=== PATIENT | female | born 1980 | race Caucasian/White ===

== ENCOUNTER 2017-05-29 15:05 | Emergency (ER) | payer BC, OTHER ==
[~2017-05-29] VITALS: Ht 160 cm; Wt 86.4 kg
[~2017-05-29 15:05] MED LIST: CLIN300C11 PO
[2017-05-29 16:58] VITALS: BP 137/84
== END 2017-05-29 19:54 | disposition home or self-care (01) ==
LOC: EEVIPCON 15:09 → ER 15:09
DX: T74.21XA Adult sexual abuse, confirmed, initial encounter (principal); Y07.59 Other non-family member, perpetrator of maltreatment and neglect
CPT/HCPCS: 99281; 99284

== ENCOUNTER 2018-09-26 11:45 | Emergency (ER) | payer MEDICAID, OTHER ==
[~2018-09-26] VITALS: Ht 160 cm; Wt 84.1 kg
[2018-09-26] MEDS ORDERED: charcoal, activated 50 GM/240 ML bottle PO ONE (12:10)
--- NOTE | 2018-09-26 12:10 | NUR ---
POISON CONTROL CONTACTED AND REPORTED PT WITH POSSIBLE INGESTION OF UP TO 60 TABS OF BENADRYL 25MG TABS. RECOMMENDATIONS INCLUDE: IF PT ALERT GIVE PT ORAL ACTIVATED CHARCOAL X 1 ROUTINE LAB DRAWS WITH TOXICOLOGY SEIZURE PRECAUTIONS EKG, MONITOR FOR WIDENED QRS IF >100 GIVE SODIUM BICARB
--- NOTE | 2018-09-26 12:15 | NUR ---
RECEIVED VO FOR ACTIVATED CHARCOAL FROM DR. PINTO.
--- NOTE | 2018-09-26 12:50 | NUR ---
PT INGESTED 240ML OF CHARCOAL PO WELL. NO NG NEEDED.
--- NOTE | 2018-09-26 12:51 | NUR ---
Bryant macdonald in [facility] - 09/26/18 at 1252 by HUMBERTO SHY CALLING [facility]
--- NOTE | 2018-09-26 12:52 | NUR ---
SHY CALLED FOR TELEPSYCH CONSULT
[2018-09-26 13:10] LABS: ALANINE AMINOTRANSFERASE 22 U/L (12-78); ALBUMIN 3.7 G/DL (3.4-5.0); ALKALINE PHOSPHATASE 93 IU/L (46-116); ANION GAP 8 (8-16); ASPARTATE AMINO TRANSFERASE 11 U/L (10-37); BILIRUBIN,TOTAL 0.4 MG/DL (0.1-1.0); BLOOD UREA NITROGEN 10 MG/DL (7-18); BUN/CREATININE RATIO 13.2 (6.6-38.0); CALCIUM 9.2 MG/DL (8.5-10.1); CHLORIDE 106 MMOL/L (99-107); CREATININE 0.76 MG/DL (0.40-0.90); GLUCOSE 80 MG/DL (70-104); POTASSIUM 3.1 MMOL/L (3.5-5.1); SODIUM 142 MMOL/L (135-145); TOTAL PROTEIN 7.4 G/DL (6.4-8.2); eGFR 85 ML/MIN
[2018-09-26 13:14] LABS: URINE AMPHETAMINE SCREEN NEGATIVE (Neg); URINE BARBITUATE SCREEN NEGATIVE (Neg); URINE BENZODIAZEPINES SCREEN POSITIVE (Neg); URINE CANNABINOID SCREEN POSITIVE (Neg); URINE COCAINE SCREEN NEGATIVE (Neg); URINE METHADONE SCREEN NEGATIVE (Neg); URINE OPIATE SCREEN NEGATIVE (Neg); URINE PHENCYCLIDINE SCREEN NEGATIVE (Neg)
[2018-09-26 13:19] LABS: ACETAMINOPHEN < 2.0 UG/ML (10-30); ETHANOL < 0.010 GM/DL (0.0-0.010)
[2018-09-26 13:21] LABS: BASOPHILS % (AUTO) 0.3 % (0-1); EOSINOPHILS # (AUTO) 0.1 X10'3 (0-0.9); EOSINOPHILS % (AUTO) 0.9 % (0-6); HEMATOCRIT 39.9 % (35.0-45.0); HEMOGLOBIN 12.9 g/dl (12.0-16.0); LYMPHOCYTES # (AUTO) 2.2 X10'3 (1.1-4.8); MEAN CORPUSCULAR HEMOGLOBIN 28.2 PG (27.0-31.0); MEAN CORPUSCULAR HGB CONC 32.4 g/dL (33.0-36.5); MONOCYTES # (AUTO) 0.8 X10'3 (0-0.9); MONOCYTES % (AUTO) 6.7 % (2-12); NEUTROPHILS # (AUTO) 9.1 X10'3 (1.8-7.7); NEUTROPHILS % (AUTO) 74.1 % (42-75); PLATELET COUNT 374 X10'3 (140-440); RED BLOOD COUNT 4.58 X10'6 (4.20-5.60); RED CELL DISTRIBUTION WIDTH 16.2 % (11.5-14.5); WHITE BLOOD COUNT 12.2 X10'3 (4.5-11.0)
[2018-09-26 13:24] LABS: URINE HCG NEGATIVE (NEG)
[2018-09-26] MEDS ORDERED: normal saline 1000ML IV soln IVB ONE (13:30)
[2018-09-26] MEDS ORDERED: ondansetron/PF 4mg/2ml inj IV ONE (13:30)
--- NOTE | 2018-09-26 13:35 | NUR ---
PT PLACED ON [address]
[2018-09-26] MEDS ORDERED: ALPRAZolam 0.5mg tablet PO PRN (16:05)
--- NOTE | 2018-09-26 19:30 | NUR ---
Rcd pt from ED awake and alert per w/c.Needs attended.Still nauseous.
[2018-09-26] MEDS ORDERED: ESCI20TA38 PO (19:32)
[2018-09-26] MEDS ORDERED: ALPR1TAB7 PO (19:32)
[2018-09-26] MEDS ORDERED: ZOLP10TA5 PO (19:32)
--- NOTE | 2018-09-26 20:35 | NUR ---
up to the bathroom with assist.pt drowsy and a little bit unsteady.
[2018-09-26] MEDS ORDERED: ALPRAZolam 0.5mg tablet PO SCH (21:00)
[2018-09-26] MEDS ORDERED: citalopram 20mg tablet PO SCH (21:00)
[2018-09-26] MEDS ORDERED: zolpidem 5mg tablet PO SCH (21:00)
--- NOTE | 2018-09-26 21:35 | NUR ---
pt up to the bathroom with fww
--- NOTE | 2018-09-26 22:34 | NUR ---
up to the bathroom with fww.
--- NOTE | 2018-09-26 23:45 | NUR ---
asleep in bed breathing even and unlaboured.
--- NOTE | 2018-09-27 00:50 | NUR ---
pt sleeping breathing even and unlaboured.
--- NOTE | 2018-09-27 01:34 | NUR ---
up to the bathroom with fww.
--- NOTE | 2018-09-27 02:50 | NUR ---
sleeping on her left side
--- NOTE | 2018-09-27 03:50 | NUR ---
had diarrhea from activated charcoal.linen changed.
--- NOTE | 2018-09-27 05:00 | NUR ---
pt asleep in bed,breathing even and unlaboured.
[2018-09-27 06:11] VITALS: BP 125/81
--- NOTE | 2018-09-27 07:02 | NUR ---
Received report from Jhoana RN
--- NOTE | 2018-09-27 08:12 | NUR ---
MOTHER IS HERE TO VISIT PATIENT
--- NOTE | 2018-09-27 08:54 | NUR ---
Patient up to the bathroom
--- NOTE | 2018-09-27 11:21 | NUR ---
IV REMOVED AND PATIENT UP TO THE BATHROOM TO GIVE A SAMPLE OF URINE.
[2018-09-27 11:38] LABS: CLARITY,URINE CLEAR (Clear); COLOR,URINE YELLOW (Yellow); GLUCOSE, URINE NEGATIVE (Neg); KETONES,URINE NEGATIVE (Neg); LEUKOCYTE ESTERASE ,URINE NEGATIVE (Neg); NITRITES, URINE NEGATIVE (Neg); OCCULT BLOOD,URINE MODERATE (Neg); PROTEIN,URINE NEGATIVE (Neg); UROBILINOGEN,URINE 0.2 E.U/dL (0.2-1.0)
[2018-09-27] MEDS ORDERED: potassium Cl 20 mEq SR tablet PO PRN ×2 (11:40)
[2018-09-27] MEDS ORDERED: magnesium Cl slow-release 64mg tablet PO PRN (11:40)
[2018-09-27] MEDS ORDERED: potassium Cl 40MEQ/NS 500ml 500 ML IV PRN ×2 (11:40)
[2018-09-27 11:42] LABS: UA COLLECTION TYPE NON-SPECIFIED
[2018-09-27 11:52] LABS: BACTERIA,URINE FEW /HPF (Neg); SQUAMOUS EPITHELIAL CELL,UR MANY /LPF (FEW); WBC,URINE 0-4 /HPF (0-4)
--- NOTE | 2018-09-27 13:01 | NUR ---
[facility] CALLED REGARDING PT. THEY WANTED TO MAKE SURE SHE RECIEVED K+ REPLACEMENT
--- NOTE | 2018-09-27 13:52 | NUR ---
PATIENT FAMILY MEMBERS LEFT. [facility] WILL BE PICKING UP PATIENT. PER [facility].
== END 2018-09-27 14:50 ==
LOC: ER 11:46
DX: T45.0X2A Poisoning by antiallergic and antiemetic drugs, intentional self-harm, initial encounter (principal); F32.9 Major depressive disorder, single episode, unspecified; R45.851 Suicidal ideations; F41.9 Anxiety disorder, unspecified; Z79.899 Other long term (current) drug therapy; Y92.89 Other specified places as the place of occurrence of the external cause
CPT/HCPCS: 36415; 80053; 80305; 80320; 80329; 81001; 81025; 84443; 85025; 93005; 96374; 99291; J2405; J7030

== ENCOUNTER 2019-03-13 11:14 | Emergency (ER) | payer MEDICAID ==
[~2019-03-13] VITALS: Ht 170.2 cm; Wt 72.0 kg
[~2019-03-13 11:14] MED LIST changes: +ALPR1TAB7 PO; -CLIN300C11 PO; +ESCI20TA38 PO; +ZOLP10TA5 PO
[2019-03-13 11:29] VITALS: BP 120/83
--- NOTE | 2019-03-13 12:00 | NUR ---
pt came in with mother. pt placed in room 20. pt is very anxious
[2019-03-13] MEDS ORDERED: PRAZ5CAP2 PO (12:14)
[2019-03-13] MEDS ORDERED: ARIP5TAB4 PO (12:14)
[2019-03-13] MEDS ORDERED: TRAZ-219 PO (12:14)
[2019-03-13] MEDS ORDERED: PALI9TAB PO (12:16)
[2019-03-13] MEDS ORDERED: LORA-269 PO (12:22)
[2019-03-13] MEDS ORDERED: LIT300C PO (12:22)
[2019-03-13] MEDS ORDERED: TEMA30CA PO (12:22)
[2019-03-13] MEDS ORDERED: LORazepam 1 MG tablet PO ONE (12:30)
[2019-03-13] MEDS ORDERED: [UNRECOGNIZED DRUG - OTHER] (12:34)
[2019-03-13 12:55] LABS: BASOPHILS # (AUTO) 0.1 X10'3 (0-0.2); BASOPHILS % (AUTO) 0.5 % (0-1); EOSINOPHILS % (AUTO) 0.4 % (0-6); HEMATOCRIT 39.8 % (35.0-45.0); HEMOGLOBIN 13.2 g/dl (12.0-16.0); LYMPHOCYTES # (AUTO) 1.6 X10'3 (1.1-4.8); LYMPHOCYTES % (AUTO) 16.2 % (21-51); MEAN CORPUSCULAR HEMOGLOBIN 30.2 PG (27.0-31.0); MEAN CORPUSCULAR HGB CONC 33.1 g/dL (33.0-36.5); MEAN CORPUSCULAR VOLUME 91.2 FL (78-98); MEAN PLATELET VOLUME 8.1 FL (7.4-10.4); MONOCYTES # (AUTO) 0.7 X10'3 (0-0.9); MONOCYTES % (AUTO) 6.5 % (2-12); NEUTROPHILS # (AUTO) 7.8 X10'3 (1.8-7.7); NEUTROPHILS % (AUTO) 76.4 % (42-75); PLATELET COUNT 391 X10'3 (140-440); RED BLOOD COUNT 4.36 X10'6 (4.20-5.60); RED CELL DISTRIBUTION WIDTH 13.8 % (11.5-14.5); WHITE BLOOD COUNT 10.2 X10'3 (4.5-11.0)
--- NOTE | 2019-03-13 13:00 | NUR ---
pt is interacting with staff.
[2019-03-13 13:21] LABS: ALANINE AMINOTRANSFERASE 23 U/L (12-78); ALBUMIN 3.8 G/DL (3.4-5.0); ALKALINE PHOSPHATASE 106 IU/L (46-116); ANION GAP 9 (8-16); ASPARTATE AMINO TRANSFERASE 9 U/L (10-37); BILIRUBIN,TOTAL 0.4 MG/DL (0.1-1.0); BLOOD UREA NITROGEN 8 MG/DL (7-18); BUN/CREATININE RATIO 10.1 (6.6-38.0); CHLORIDE 106 MMOL/L (99-107); CREATININE 0.79 MG/DL (0.40-0.90); GLUCOSE 91 MG/DL (70-104); POTASSIUM 3.4 MMOL/L (3.5-5.1); SODIUM 143 MMOL/L (135-145); TOTAL PROTEIN 7.8 G/DL (6.4-8.2); eGFR 81 ML/MIN
[2019-03-13 13:25] LABS: URINE AMPHETAMINE SCREEN NEGATIVE (Neg); URINE BARBITUATE SCREEN NEGATIVE (Neg); URINE BENZODIAZEPINES SCREEN NEGATIVE (Neg); URINE CANNABINOID SCREEN NEGATIVE (Neg); URINE COCAINE SCREEN NEGATIVE (Neg); URINE HCG NEGATIVE (NEG); URINE METHADONE SCREEN NEGATIVE (Neg); URINE OPIATE SCREEN NEGATIVE (Neg); URINE PHENCYCLIDINE SCREEN NEGATIVE (Neg)
[2019-03-13 13:37] LABS: ACETAMINOPHEN < 2.0 UG/ML (10-30); ETHANOL < 0.010 GM/DL (0.0-0.010)
--- NOTE | 2019-03-13 15:24 | NUR ---
FAXED PACKET [facility]
--- NOTE | 2019-03-13 15:27 | NUR ---
lyric rogel is at bedside
[2019-03-13] MEDS ORDERED: BENZ1TAB7 PO (17:02)
[2019-03-13] MEDS ORDERED: DULO-31 PO (17:02)
[2019-03-13] MEDS ORDERED: PRAZ1CAP5 PO (17:02)
== END 2019-03-13 17:19 ==
LOC: ER 11:14
DX: F31.9 Bipolar disorder, unspecified (principal); R45.851 Suicidal ideations; F41.9 Anxiety disorder, unspecified; Z79.899 Other long term (current) drug therapy
CPT/HCPCS: 36415; 80053; 80178; 80305; 80320; 80329; 81025; 84443; 85025; 99284